=== PATIENT | male | born 1980 | race Two or more races ===

== ENCOUNTER 2024-04-06 23:44 | Emergency (ER) | payer BC, MEDICAID, SELFPAY ==
[2024-04-06 23:45] VITALS: BMI 26.6
[2024-04-07 00:26] VITALS: BP 137/98; PULSE 75; RESP 18; TEMP 36.9; O2SAT 98
--- NOTE | 2024-04-07 00:36 | XR_ITS ---
Examination: CT abdomen with intravenous contrast CT pelvis with intravenous contrast 2-D coronal reconstructions 2-D sagittal reconstructions Date and time of exam:April 07, 2024 0146 hrs. Comparison November 16, 2022 Indications: Diagnosis malignant neoplasm colon and rectal bleeding today. CTDI: vol (mGy) 15.77 DLP: (mGycm) 719 Technique: Multiple axial sections of the abdomen and pelvis have been obtained. 64 slice high-resolution scanner used. 3 mm axial sections have been obtained, post intravenous injection 60 cc [id number] 2-D sagittal, coronal reconstructions obtained. Low dose protocols were performed. One or more of the following dose reduction techniques were used; automated exposure control, adjustment of the mA and/or KV according to patient size, use of iterative reconstruction technique. Findings: Diffuse fatty infiltration throughout the liver, no focal liver lesions Spleen not enlarged Contracted gallbladder No pancreatic mass No renal or ureteral calculi, no hydronephrosis Aorta normal size Normal appendix There is minimal wall thickening involving the right colon Colonic diverticulosis No prostatomegaly Contracted urinary bladder The osseous structures are intact Small fat-containing right inguinal hernia Impression: Minimal wall thickening right colon consider nonspecific colitis Consider nuclear medicine gastrointestinal bleeding study or CTA post contrast abdomen pelvis to best assess for gastrointestinal bleeding
--- NOTE | 2024-04-07 00:36 | PD.EDRME ---
Rapid Medical Screening Exam RME Arrival date/time: 04/06/24 23:44 44-year-old male past medical history of colon tumor presents emergency department complaining of rectal bleeding. Chief Complaint: General Adult/Misc Complain Time Seen by Provider: 04/07/24 00:16 Vital signs: Vital Signs Temperature 98.4 F 04/07/24 00:26 Pulse Rate 75 04/07/24 00:26 Respiratory Rate 18 04/07/24 00:26 Blood Pressure 137/98 H 04/07/24 00:26 Pulse Oximetry (%) 98 04/07/24 00:26 Oxygen Delivery Method Room Air 04/07/24 00:26 Vital signs reviewed by provider: Yes
--- NOTE | 2024-04-07 00:44 | EDNOTE_ITS ---
ED General RME/HPI General Chief complaint: General Adult/Misc Complain Stated complaint: RECTAL BLEEDING Time Seen by Provider: 04/07/24 00:16 Arrival date/time: 04/06/24 23:44 RME / HPI RME / HPI narrative: 04/06/24 23:44 44-year-old male past medical history of colon tumor presents emergency department complaining of rectal bleeding. ----- Dr. Plummer?s Main ED Evaluation: 44yo male with a history of colon tumor s/p resection (09/26/22) presents to the ED for a chief complaint of rectal bleeding. Patient states he had a bowel movement with some streaks of blood in it and was concerned, so he came in for evaluation. He states he had similar symptoms 1 year ago. He denies any abdominal pain, fever, chills, N/V or any other associated symptoms. No known allergies. Patient states he has a follow-up appointment with his oncologist at [facility] on 04/28/24. Related Data Home Medications ?Medication ?Instructions ?Recorded ?Confirmed No Known Home Medications 10/11/22 04/07/24 Allergies Allergy/AdvReac Type Severity Reaction Status Date / Time No Known Allergies Allergy Verified 11/16/22 12:41 Review of Systems Review of Systems Systems Reviewed: All systems reviewed, normal except as documented Past Medical History Past Medical History NEUROLOGIC: Negative Neurological Disorders, Cerebrovascular Accident, Transient Ischemic Attacks (TIA), Dementia, Alzheimer's Disease, Parkinson's Disease, Brain Tumor, Meningitis, Seizures, Epilepsy, Multiple Sclerosis, Cerebral Palsy, Amyotrophic Lateral Sclerosis (ALS/Brittany Gehrig's), Guillain-Arco Syndrome, Spina Bifida, Paralysis, Peripheral Neuropathy, Vazquez's Palsy, Subdural Hematoma, Migraine, Head Trauma, Spinal Cord Injury or Traumatic Brain Injury CARDIAC: Negative Cardiac Disorders, Myocardial Infarction, Cardiac Arrhythmia, Atrial Fibrillation, Angina, Heart Murmur, Coronary Artery Disease, Atherosclerotic Heart Disease, Peripheral Vascular Disease, Hypercholesterolemia, Aneurysm, Congestive Heart Failure, Congenital Heart Disease, Valvular Heart Disease, Rheumatic Fever, Cardiomyopathy, Edema, Pericarditis, Cellulitis, Deep Vein Thrombosis, Hypertension, Hypotension or Varicose Veins RESPIRATORY: Negative Chronic Obstructive Pulmonary Disease (COPD), Asthma, Bronchitis, Emphysema, Pneumonia, Pulmonary Fibrosis, Cystic Fibrosis, Tuberculosis, Pulmonary Embolism, Pulmonary Edema or Sleep Apnea GASTROINTESTINAL: Positive Gastrointestinal Disorders; Negative Hepatitis, Cirrhosis, Pancreatitis, Celiac Disease, Gall Bladder Disease, Gastrointestinal Bleed, Esophageal Varices, Ley's Esophagus, Colitis, Ulcerative Colitis, Diverticulitis, Diverticulosis, Ulcer, Colorectal Cancer, Irritable Bowel, Crohn's Disease, Obstructive Bowel, Hiatal Hernia, Hemorrhoids, Gastroesophageal Reflux Disease or Obesity GENITOURINARY: Positive Genitourinary Disorders (URINARY FREQUENCY); Negative Renal Disease, Kidney Stones, Polycystic Kidney Disease, Neurogenic Bladder, Inguinal Hernia, Dialysis, Prostate Cancer or Benign Prostatic Hyperplasia REPRODUCTIVE: Negative Breast Cancer or Testicular Cancer MUSCULOSKELETAL: Positive Musculoskeletal Disorders (MUSCLE SPASM); Negative Muscular Dystrophy, Myasthenia Gravis, Marfan's Syndrome, Bone Cancer, Arthritis, Rheumatoid Arthritis, Osteoporosis, Degenerative Disk Disease, Gout, Scoliosis, Carpal Tunnel Syndrome, Fibromyalgia, Fractures, Degenerative Joint Disease, Osteomyelitis or Poliovirus ENT: Negative Cataracts, Glaucoma, Blind, Retinal Detachment, Macular Degeneration, Ear Infection, Deafness, Head Trauma or Eye Prosthesis ENDOCRINE: Negative Endocrine Disorders, Diabetes Mellitus Type 1, Diabetes Mellitus Type 2, Hypoglycemia, Linden's Syndrome, [place]'s Disease, Hyperthyroidism, Hypothyroidism, Parathyroid Disease, Pituitary Disease, Systemic Lupus Erythematosus, Syndrome of Inappropriate Antidiuretic Hormone (SIADH), Adrenal Disease or Graves' Disease HEMATOLOGIC: Negative Blood Disorders, Anemia, Leukemia, Hemophilia, Thalassemia, Sickle Cell Disease or Clotting Problems PSYCHO/SOCIAL: Negative Psychiatric Problems, Schizophrenia, Recreational Drug Use, Bipolar Disorder, Depression, Anxiety, Behavior Problems, Self-Mutilation, Attention Deficit Disorder, Attention Deficit Hyperactivity Disorder, Depression, Post Traumatic Stress Disorder or Eating Disorder OTHER HISTORY: Positive Cancer (within the abdominal); Negative Hospitalization, Autoimmune Disease, Down Syndrome, Autism, Developmental Delay, Shingles, Falls, Blood Transfusions, Blood Transfusion Reaction, Anesthesia Reactions, Organ Transplant, Chemotherapy, Radiation Therapy, Hyperbaric Therapy, MRSA, VRSA, Vancomycin-Resistant Enterococci, Human Immunodeficiency Virus (HIV), Chicken Pox, Measles, Mumps, Rubella ([place]amo[place] Measles), Pertussis, Clostridium Difficile, Breast Cancer, Colorectal Cancer, Lung Cancer, Prostate Cancer or Testicular Cancer Family History FAMILY HISTORY: Negative Family Psychiatric Problems, Family Respiratory Disorders, Family Cardiac Disorders, Family Gastrointestinal Problems, Family Cancer, Family Surgery or Family Anesthesia Reaction Surgical History SURGICAL: Positive Ear Surgery, Eye Surgery, Abdominal Surgery and Bowel Surgery (Removal of tumor); Negative Cardiac Surgery, Open Heart Surgery, Coronary Artery Bypass Graft, Valve Replacement, Vascular Surgery, Coronary Stent, Cardiac Catheterization, Pacemaker, Angiogram, Auto Implanted Cardiovert Defib, Carotid Endarterectomy, Endocrine Surgery, Thyroidectomy, Tympanostomy Tube, Nose Surgery, Oral Surgery, Tonsillectomy, Adenoidectomy, Cochlear Implant, Corneal Transplant, Throat Surgery, Tracheostomy, Gastric Bypass Surgery, Gastrostomy, Nephrectomy, Transurethral Resection, Joint Replacement, Amputation, Open Reduction Internal Fixation, Arthroscopy, Neurologic Surgery, Brain Shunt, Vasectomy or Organ Transplant Social History SMOKING STATUS: Never smoker ED Exam Narrative Physical exam: GENERAL APPEARANCE: alert and oriented x 4, well-developed, well-nourished, no acute distress VITALS: All vitals were reviewed and the pulse ox is 98% on room air, which is normal according to my interpretation. HEENT: Normocephalic, atraumatic; pupils equal, round, reactive to light; EOMI; mucous membranes pink, moist; oropharynx clear NECK: Supple LUNGS: CTABL; no wheezes, no rales, no rhonchi HEART: Regular rate, regular rhythm; normal S1, S2; no murmurs ABDOMEN: non distended; normal BS; soft, no tenderness, no guarding, no rebound; no masses, no organomegaly, no hernia BACK: no CVA tenderness EXTREMITIES: atraumatic; no edema NEUROLOGIC: awake; alert and oriented x4; cranial nerves II-XII grossly intact; no focal sensory or motor deficits PSYCHIATRIC: appropriate mood and affect SKIN: warm, dry, normal color; no rashes Course Quality Measures none Orders Category Date Time Status CT Screening NOW Care 04/07/24 00:36 Active Insert IV NOW Care 04/07/24 00:[address] abdomen pelvis w con Stat Exams 04/07/24 00:36 Taken CBC Stat Lab 04/07/24 00:46 Completed CMP [Comprehensive Metabolic Panel] Stat Lab 04/07/24 00:46 Completed INR [Prothrombin Time with INR] Stat Lab 04/07/24 00:46 Completed Lipase Stat Lab 04/07/24 00:46 Completed Occult Blood, Stool (LAB) Stat Lab 04/07/24 01:14 Ordered PTT [Partial Thromboplastin Time] Stat Lab 04/07/24 00:46 Completed Urinalysis, C/S if Indicated Stat Lab 04/07/24 00:49 Completed Vital Signs Vital signs: Vital Signs Temperature 98.4 F 04/07/24 00:26 Pulse Rate 75 04/07/24 00:26 Respiratory Rate 18 04/07/24 00:26 Blood Pressure 137/98 H 04/07/24 00:26 Pulse Oximetry (%) 98 04/07/24 00:26 Oxygen Delivery Method Room Air 04/07/24 00:26 [facility] Patient data External records reviewed:: [facility] previous records (Per chart review, patient was seen here on 11/16/22 for rectal bleed.) Clinical information provided by:: patient Social determinants that could affect healthcare access:: none Patient has the following chronic illnesses:: colon tumor s/p resection How is presenting disease/condition affected by chronic disease/condition?: u neffected by Evaluation data The following diagnostics were reviewed and interpreted by me:: lab results and radiology exam(s) Lab and/or radiology exams considered but not ordered:: none Interpretation Summary: CBC is normal, CMP is normal, Lipase is normal, UA is unremarkable, according to my interpretation. Telerad Preliminary Report Draft Patient: CONNOR LUCIO. Record#: [id number] Birthdate: 1980 Age/Sex: 44 / M Location: [facility] Attending Dr: Ordering Physician: Date of Service: Procedure(s): Accession Number(s): cc: ~ CT scan of the abdomen and pelvis with intravenous contrast (axial sections with sagittal and coronal reformats) April 07, 2024 0145 hours Clinical History: Rectal bleeding history of tumor of colon. Comparison: Compared with the prior study dated November 16, 2022. Findings: Bibasilar dependent atelectasis is present. Fatty infiltration of the liver is noted. The gallbladder, pancreas, spleen, kidneys and adrenals are unremarkable. No contrast extravasation in the stomach, small or large bowel loops to suggest active gastrointestinal hemorrhage at the time of examination. No evidence of bowel obstruction. Small bowel anastomosis is seen in the right mid abdomen. There is mild thickening of the ascending colon with pericolonic fat stranding suggestive of colitis. A moderate amount of fecal material is present in the colon. The appendix is within normal limits. There is no mesenteric or retroperitoneal adenopathy. The urinary bladder is incompletely distended at the time of the examination. There is no free fluid or free air. A small fat-containing right inguinal hernia is present. Mild degenerative changes are identified in the spine. Impression: Mild thickening of the ascending colon with pericolonic fat stranding suggestive of colitis. No contrast extravasation in the stomach, small or large bowel loops to suggest active gastrointestinal hemorrhage at the time of examination. Other findings as described above. Report Electronically Signed By: Ta uRff 04/07/2024 2:36:52 AM [EST] Medications Medications considered but not ordered:: none Medication administrations:: none Consultations Consultation(s) initiated? (list below): No Diagnosis Differential Diagnosis ED Complaint MDM: colitis, internal hemorrhoid, external hemorrhoid, colon CA Most likely diagnosis given after review of the tests above:: see below Admission Indicated Admission indicated?: not indicated Explain why admission is indicated or not indicated:: Admission criteria not met. Admission Request Was there a request for admission?: No Disposition Plan Disposition Plan: Discharge Discharge Attestation Discharge Attestation: The patient and all family members were given an opportunity to ask questions and understood the discharge instructions. Discharge instructions specifically effects, indications for sooner follow up or return to the emergency department, and the expected course of current diagnosis. Patient condition: Stable Medical Decision Making MDM Narrative MDM Narrative: Scribe Attestation: 04/07/24 Sonja Zayas am scribing for and in the presence of Dr. Plummer. Differential Diagnosis Differential Diagnosis: colitis, internal hemorrhoid, external hemorrhoid, colon CA Lab Data 04/07/24 00:46 04/07/24 00:46 Labs: Lab Results 04/07/24 04/07/24 Range/Units 00:46 00:49 WBC 9.0 (3.8-10.6) Thou/mm3 RBC 5.57 (4.50-5.90) Miln/mm3 Hgb 17.0 H (13.5-16.0) g/dL Hct 48.0 (41.0-53.0) % MCV 86 (80-100) fL MCH 30.5 (25.0-35.0) pg MCHC 35.4 (31.0-37.0) g/dl RDW Std Deviation 36.7 (35.1-43.9) fL Plt Count 227 (140-440) Thou/mm3 Neut % (Auto) 59 (37-80) % Lymph % (Auto) 30 (10-50) % [place] % (Auto) 7 (0-12) % Eos % (Auto) 3 (0-10) % Baso % (Auto) 0 (0-2.5) % Neut # (Auto) 5.3 (1.8-7.7) Thou/mm3 Lymph # (Auto) 2.7 (1.0-4.8) Thou/mm3 [place] # (Auto) 0.6 (0.0-0.8) Thou/mm3 Eos # (Auto) 0.3 (0.0-0.5) Thou/mm3 Baso # (Auto) 0.0 (0.0-0.2) Thou/mm3 Immature Gran # (Auto) 0.09 H (0.00-0.00) Thou/mm3 Absolute Nucleated RBC 0.00 (0.00-0.00) Thou/mm3 Immature Gran % 1 H (0-0) % Nucleated RBC % 0 (0) /100 WBC PT 10.7 (9.0-12.2) Seconds INR 1.0 (0.9-1.3) APTT 26.6 (22.0-36.0) Seconds Sodium 139 (136-145) mMol/L Potassium 4.0 (3.4-5.1) mMol/L Chloride 105 (98-107) mMol/L Carbon Dioxide 27.6 (20.0-31.0) mMol/L Anion Gap 6 L (7-16) BUN 19 (9-23) mg/dL Creatinine 0.8 (0.6-1.3) mg/dL Estim Creat Clear Calc 111.3 (>60) mL/min eGFR > 60 (60 - ) See Note BUN/Creatinine Ratio 24 H (12-20) Ratio Glucose 100 (74-106) mg/dL Calculated Osmolality 279 (275-295) Calcium 9.7 (8.3-10.6) mg/dL Corrected Calcium 9.7 (8.5-10.1) mg/dL Total Bilirubin 0.8 (0.3-1.2) mg/dL AST 24 (0-34) U/L ALT 40 (10-49) U/L Alkaline Phosphatase 63 (46-116) U/L Total Protein 6.9 (5.7-8.2) gm/dL Albumin 4.5 (3.5-5.0) gm/dL Globulin 2.4 (2.3-3.5) gm/dL Albumin/Globulin Ratio 1.9 (1.2-2.2) Lipase 42 (12-53) U/L Ur Collection Type Clean Catch Urine Color Lt-Yellow (Lt Yel-Yel) Urine Clarity Clear (Clear/Hazy) Urine pH 7.0 (5.0-7.0) Ur Specific Sherrill 1.024 (1.001-1.035) Urine Protein Negative (Neg - Trace) Urine Glucose (UA) Negative (Negative) Urine Ketones Negative (Negative) Urine Blood Negative (Negative) Urine Nitrite Negative (Negative) Urine Bilirubin Negative (Negative) Urine Urobilinogen (Auto) Negative (0.0-1.0) mg/dL Ur Leukocyte Esterase Negative (Negative) Urine RBC 3 (0-3) /hpf Urine WBC < 1 (0-5) /hpf Ur Squamous Epith Cells 0 (0-5) /hpf Urine Bacteria None (None) Ur Culture Indicated? Not Indicated Discharge Plan Plan Patient Disposition: HOME (Self Care) Disposition Comment: Stable for discharge Patient condition on transfer: Stable Prescriptions/Referrals Prescriptions/Med Rec: No Action No Known Home Medications Referrals: Wanda Larios MD [Physician] - In 1 week Problem List Clinical Impression: Colitis Patient/Caregiver Discharge Instructions Discharge Activity: activity as tolerated Education Materials: Anatomy of the Digestive System, Understanding Colitis Additional Instructions: Please return to the emergency department if you feel like you are not improving or if you are getting worse in any way. Otherwise you should follow-up with Dr. Larios within the next week or so. Dr. Larios is our database management specialist which is a specialist for the colon. Just call his office and make an appointment please You should follow-up with your primary care doctor as well within the next several days Tonight your CAT scan showed that you have colitis. This is just the generalized inflammation of the colon. There were no tumors or cancer seen on the CAT scan. There is no other abnormality seen either. Print Language: Swedish Stand Alone Forms: Cassy Award Info., Patient Portal Info Letter
[2024-04-07 01:11] LABS: Collection Type, Urine Clean Catch; Squamous Epithelial Cell,Urine 0 /hpf (0-5)
[2024-04-07 01:14] LABS: Basophils % (Auto) 0 % (0-2.5); Eosinophils # (Auto) 0.3 Thou/mm3 (0.0-0.5); Eosinophils % (Auto) 3 % (0-10); Immature Granulocytes % (Auto) 1 % (0-0); Immature Granulocytes Auto 0.09 Thou/mm3 (0.00-0.00); Lymphocytes # (Auto) 2.7 Thou/mm3 (1.0-4.8); Lymphocytes % (Auto) 30 % (10-50); Mean Corpuscular HGB Conc 35.4 g/dl (31.0-37.0); Mean Corpuscular Hemoglobin 30.5 pg (25.0-35.0); Mean Corpuscular Volume 86 fL (80-100); Monocytes # (Auto) 0.6 Thou/mm3 (0.0-0.8); Monocytes % (Auto) 7 % (0-12); Neutrophils # (Auto) 5.3 Thou/mm3 (1.8-7.7); Neutrophils % (Auto) 59 % (37-80); Nucleated Red Blood Cell % 0 /100 WBC (0); Platelet Count 227 Thou/mm3 (140-440); RDW Standard Deviation 36.7 fL (35.1-43.9); Red Blood Count 5.57 Miln/mm3 (4.50-5.90)
[2024-04-07 01:18] LABS: Bilirubin,Urine Negative (Negative); Blood,Urine Negative (Negative); Clarity,Urine Clear (Clear/Hazy); Color,Urine Lt-Yellow (Lt Yel-Yel); Culture Indicated,Urine Not Indicated; Glucose, Urine Negative (Negative); Ketones,Urine Negative (Negative); Leukocyte Esterase,Urine Negative (Negative); Nitrite,Urine Negative (Negative); Protein,Urine Negative (Neg - Trace); RBC,Urine 3 /hpf (0-3); Specific Gravity,Urine 1.024 (1.001-1.035); Urobilinogen,Urine Negative mg/dL (0.0-1.0); WBC,Urine < 1 /hpf (0-5)
[2024-04-07 01:30] LABS: Alanine Aminotransferase 40 U/L (10-49); Albumin, Serum 4.5 gm/dL (3.5-5.0); Albumin/Globulin Ratio 1.9 (1.2-2.2); Alkaline Phosphatase 63 U/L (46-116); Anion Gap 6 (7-16); Aspartate Amino Transferase 24 U/L (0-34); BUN/Creatinine Ratio 24 Ratio (12-20); Bilirubin,Total 0.8 mg/dL (0.3-1.2); Blood Urea Nitrogen 19 mg/dL (9-23); Calcium 9.7 mg/dL (8.3-10.6); Calcium (Corrected) 9.7 mg/dL (8.5-10.1); Carbon Dioxide 27.6 mMol/L (20.0-31.0); Chloride 105 mMol/L (98-107); Creatinine (Component) 0.8 mg/dL (0.6-1.3); Estimated Creatinine Clearance 111.3 mL/min (>60); Globulin 2.4 gm/dL (2.3-3.5); Glucose 100 mg/dL (74-106); Lipase 42 U/L (12-53); Osmolality,Calculated 279 (275-295); Sodium 139 mMol/L (136-145); Total Protein 6.9 gm/dL (5.7-8.2); eGFR > 60 See Note
[2024-04-07 01:31] LABS: Partial Thromboplastin Time 26.6 Seconds (22.0-36.0); Prothrombin Time 10.7 Seconds (9.0-12.2)
--- NOTE | 2024-04-07 02:37 | PRELIM_ITS ---
CT scan of the abdomen and pelvis with intravenous contrast (axial sections with sagittal and coronal reformats) April 07, 2024 0145 hoursClinical History: Rectal bleeding history of tumor of colon.C omparison: Compared with the prior study dated November 16, 2022.Findings:Bibasilar dependent atelectas is is present. Fatty infiltration of the liver is noted. The gallbladder, pancreas, spleen, kidneys a nd adrenals are unremarkable.No contrast extravasation in the stomach, small or large bowel loops to suggest active gastrointestinal hemorrhage at the time of examination. No evidence of bowel obstructi on. Small bowel anastomosis is seen in the right mid abdomen. There is mild thickening of the ascend ing colon with pericolonic fat stranding suggestive of colitis. A moderate amount of fecal material i s present in the colon. The appendix is within normal limits. There is no mesenteric or retroperitone al adenopathy.The urinary bladder is incompletely distended at the time of the examination. There is no free fluid or free air.A small fat-containing right inguinal hernia is present. Mild degenerative changes are identified in the spine. Impression:Mild thickening of the ascending colon with pericolon ic fat stranding suggestive of colitis. No contrast extravasation in the stomach, small or large chavez l loops to suggest active gastrointestinal hemorrhage at the time of examination. Other findings as described above. Report Electronically Signed By: Ta Ruff 04/07/2024 2:36:52 AM [EST]
[2024-04-07 03:28] VITALS: BP 106/91; PULSE 67; RESP 18; TEMP 36.9; O2SAT 98
== END 2024-04-07 03:42 | disposition home or self-care (01) ==
PROVIDERS: Emergency Provider Emergency Medicine; PCP Family Medicine
DX: K52.9 Noninfective gastroenteritis and colitis, unspecified (principal); K62.5 Hemorrhage of anus and rectum
CPT/HCPCS: 36415; 74177; 80053; 81001; 82270; 83690; 85025; 85610; 85730; 99285; A4649; Q9967